=== PATIENT | female | born 1930 | race Two or more races ===

== ENCOUNTER 2018-03-14 21:43 | Inpatient (IN) | payer SELFPAY ==
[~2018-03-14] VITALS: Ht 152.4 cm; Wt 63.3 kg
[2018-03-14 22:16] LABS: Basophils # (auto) 0.1 uL; Basophils % (auto) 0.6 % (0.0-2.0); Eosinophils # (auto) 0.1 uL; Eosinophils % (auto) 1.4 % (0.0-7.0); Hematocrit 43.1 % (36.0-46.0); Hemoglobin 15.2 g/dL (12.2-16.2); Lymphocytes # (auto) 1.3 uL; Lymphocytes % (auto) 14.9 % (10.0-50.0); Mean Corpuscular Hemoglobin 31.7 pg (28.0-32.0); Mean Corpuscular Hgb Conc. 35.2 g/dL (32.0-36.0); Mean Corpuscular Volume 89.9 fL (80.0-100.0); Monocytes % (auto) 11.4 % (0.0-12.0); Neutrophils # (auto) 6.4 uL; Neutrophils % (auto) 71.7 % (37.0-80.0); Platelet Count (auto) 148 10^3/uL (140-450); Red Blood Cells 4.79 10^6/uL (4.0-5.20); Red Cell Distribution Width 14.1 % (11.8-14.3); White Blood Cell 8.9 10^3/uL (4.4-10.8)
[2018-03-14 22:27] LABS: Alanine Aminotransferase 26 U/L (13-56); Albumin 3.4 g/dL (3.4-5.0); Anion Gap 6 (5-15); Aspartate Aminotransferase 18 U/L (15-37); Blood Urea Nitrogen 18 mg/dL (7-18); Calcium 9.3 mg/dL (8.5-10.1); Carbon Dioxide 27 mmol/L (21-32); Chloride 108 mmol/L (98-107); GFR African American 98 mL/min; GFR Non-African American 81 mL/min; Glucose 108 mg/dL (74-106); Sodium 141 mmol/L (136-145)
[2018-03-14 22:32] LABS: Alkaline Phosphatase 72 U/L (45-117); Bilirubin, Total 0.3 mg/dL (0.2-1.0); Total Protein 7.2 g/dL (6.4-8.2)
[2018-03-15] MEDS ORDERED: cloNIDine HCL 0.1 MG TAB PO ONE (00:15)
[2018-03-15] MEDS ORDERED: cloNIDine HCL 0.1 MG TAB ONE (00:15)
[2018-03-15] MEDS ORDERED: cefTRIAXone 1GM/10ml IVPUSH 10 ML IV ONE (00:45)
[2018-03-15 01:14] LABS: INR 0.95 (0.9-1.15); Partial Thromboplastin Time 27.1 sec (23.78-33.04); Prothrombin Time 10.2 sec (9.27-12.13)
[2018-03-15 04:07] LABS: Urine Bacteria FEW /hpf (None Seen); Urine Blood Negative /uL (Negative); Urine Mucus FEW (None Seen); Urine Specific Gravity 1.011 (1.001-1.035); Urine WBC 17 /hpf (0 - 5)
[2018-03-15] MEDS ORDERED: NITROGLYCERIN 0.4 MG SL TAB SL PRN (05:45)
[2018-03-15] MEDS ORDERED: HYDROcodone-ACET 5/325MG TAB PO PRN (05:45)
[2018-03-15] MEDS ORDERED: ALBUTEROL SULF 2.5 MG/0.5ML(0.5%) NEB SOLN NEB PRN (05:45)
[2018-03-15] MEDS ORDERED: TEMAZEPAM 15 MG CAP PO PRN (05:45)
[2018-03-15] MEDS ORDERED: MORPHINE SULFATE 4 MG/ML SYR/VIAL IV PRN (05:45)
[2018-03-15] MEDS ORDERED: ACETAMINOPHEN 325 MG TAB PO PRN (05:45)
[2018-03-15] MEDS ORDERED: DOCUSATE SOD 100 MG CAP PO PRN (05:45)
[2018-03-15] MEDS ORDERED: ONDANSETRON HCL 4 MG/2 ML VIAL IV PRN (05:45)
[2018-03-15] MEDS: AZITHROMYCIN 500MG/ 250ML 250 ML IV SCH (08:19)
[2018-03-15 09:42] VITALS: BP 152/97
[2018-03-15] MEDS: ENOXAPARIN SOD 40 MG/0.4 ML SYRINGE SC SCH (10:10)
[2018-03-15] MEDS: FAMOTIDINE 20 MG TAB PO SCH ×2 (10:10→22:00)
[2018-03-15] MEDS ORDERED: amLODIPine BESYLATE 5 MG TAB PO ONE (13:15)
[2018-03-15] MEDS ORDERED: DILT40TA PO (13:43)
[2018-03-15] MEDS ORDERED: GABA100C9 PO (13:43)
[2018-03-15 17:00] VITALS: BP 137/76
[2018-03-15 22:00] VITALS: BP 145/71
[2018-03-15] MEDS ORDERED: cefTRIAXone 1GM/10ml IVPUSH 10 ML IV SCH (23:00)
[2018-03-16 05:20] VITALS: BP 197/85
[2018-03-16] MEDS ORDERED: cloNIDine HCL 0.1 MG TAB PO PRN (06:00)
[2018-03-16] MEDS: AZITHROMYCIN 500MG/ 250ML 250 ML IV SCH (06:28)
[2018-03-16 07:48] VITALS: BP 123/76
[2018-03-16] MEDS ORDERED: LORazepam 2MG/ML-1ML VIAL IV PRN (09:45)
[2018-03-16] MEDS ORDERED: LORazepam 2MG/ML-1ML VIAL IV ONE (09:45)
[2018-03-16] MEDS ORDERED: amLODIPine BESYLATE 5 MG TAB PO SCH (10:00)
[2018-03-16] MEDS: ENOXAPARIN SOD 40 MG/0.4 ML SYRINGE SC SCH (10:00)
[2018-03-16] MEDS: FAMOTIDINE 20 MG TAB PO SCH (10:00)
[2018-03-16 11:31] VITALS: BP 123/76
== END 2018-03-16 11:53 | disposition home or self-care (01) | DRG 689 ==
LOC: ER 21:43 → TELE 21:44 → TELE-CENTR 03-15 14:44
PROVIDERS: ADMIT Nurse Practitioner; ATTEND Internal Medicine
DX: N39.0 Urinary tract infection, site not specified (principal); J18.1 Lobar pneumonia, unspecified organism; I10 Essential (primary) hypertension; R07.9 Chest pain, unspecified; Z90.49 Acquired absence of other specified parts of digestive tract
CPT/HCPCS: 36415; 71045; 80053; 81001; 83880; 84484; 85025; 85379; 85610; 85730; 87040; 96372; 96374; 96375; J0696

== ENCOUNTER 2018-03-17 13:37 | Inpatient (IN) | payer SELFPAY ==
[~2018-03-17] VITALS: Ht 177.8 cm; Wt 61.5 kg
[~2018-03-17 13:37] MED LIST: DILT40TA PO; GABA100C9 PO
[2018-03-17] MEDS ORDERED: SODIUM CHLORIDE 0.9% 1,000 ML IV ONE (15:53)
[2018-03-17 16:18] LABS: Basophils # (auto) 0.1 uL; Basophils % (auto) 0.7 % (0.0-2.0); Eosinophils # (auto) 0.1 uL; Eosinophils % (auto) 0.8 % (0.0-7.0); Hematocrit 44.3 % (36.0-46.0); Hemoglobin 15.8 g/dL (12.2-16.2); Lymphocytes # (auto) 1.2 uL; Lymphocytes % (auto) 11.4 % (10.0-50.0); Mean Corpuscular Hemoglobin 31.9 pg (28.0-32.0); Mean Corpuscular Hgb Conc. 35.7 g/dL (32.0-36.0); Mean Corpuscular Volume 89.4 fL (80.0-100.0); Monocytes # (auto) 0.9 uL; Monocytes % (auto) 8.3 % (0.0-12.0); Neutrophils # (auto) 8.3 uL; Neutrophils % (auto) 78.8 % (37.0-80.0); Nucleated Red Blood Cells % 0.2 %; Platelet Count (auto) 141 10^3/uL (140-450); Red Blood Cells 4.95 10^6/uL (4.0-5.20); Red Cell Distribution Width 14.5 % (11.8-14.3); White Blood Cell 10.6 10^3/uL (4.4-10.8)
[2018-03-17 17:05] LABS: Albumin 3.4 g/dL (3.4-5.0); Calcium 9.1 mg/dL (8.5-10.1); Potassium 3.4 mmol/L (3.5-5.1)
[2018-03-17 17:08] LABS: Bilirubin, Total 0.6 mg/dL (0.2-1.0); Total Protein 7.3 g/dL (6.4-8.2)
[2018-03-17] MEDS ORDERED: ONDANSETRON HCL 4 MG/2 ML VIAL IV PRN (22:30)
[2018-03-17] MEDS ORDERED: ACETAMINOPHEN 500 MG TAB PO PRN (22:30)
[2018-03-17] MEDS ORDERED: POTASSIUM CHL 20 Meq TABLET PO ONE (23:00)
[2018-03-17 23:22] VITALS: BP 169/85
[2018-03-17 23:40] VITALS: BP 153/74
[2018-03-18] MEDS: IPRATROPIUM BROM 0.5 MG/2.5ML INH SOL NEB SCH ×4 (01:08→18:22)
[2018-03-18] MEDS: ALBUTEROL SULF 2.5 MG/0.5ML(0.5%) NEB SOLN NEB SCH ×4 (01:08→18:22)
[2018-03-18 01:56] VITALS: BP 153/74
[2018-03-18 05:00] VITALS: BP 160/83
[2018-03-18 05:42] LABS: Basophils # (auto) 0.1 uL; Basophils % (auto) 0.9 % (0.0-2.0); Eosinophils # (auto) 0.1 uL; Eosinophils % (auto) 0.8 % (0.0-7.0); Hematocrit 41.8 % (36.0-46.0); Hemoglobin 14.9 g/dL (12.2-16.2); Lymphocytes # (auto) 1.3 uL; Lymphocytes % (auto) 16.2 % (10.0-50.0); Mean Corpuscular Hemoglobin 31.9 pg (28.0-32.0); Mean Corpuscular Hgb Conc. 35.6 g/dL (32.0-36.0); Mean Corpuscular Volume 89.6 fL (80.0-100.0); Monocytes # (auto) 0.8 uL; Monocytes % (auto) 10.7 % (0.0-12.0); Neutrophils # (auto) 5.5 uL; Neutrophils % (auto) 71.4 % (37.0-80.0); Nucleated Red Blood Cells % 0.1 %; Platelet Count (auto) 135 10^3/uL (140-450); Red Blood Cells 4.66 10^6/uL (4.0-5.20); Red Cell Distribution Width 14.1 % (11.8-14.3); White Blood Cell 7.8 10^3/uL (4.4-10.8)
[2018-03-18 06:05] LABS: Potassium 4.2 mmol/L (3.5-5.1)
[2018-03-18 06:10] LABS: BUN/Creatinine Ratio 31.1; Calcium 8.9 mg/dL (8.5-10.1)
[2018-03-18 08:56] VITALS: BP 187/81
[2018-03-18 11:45] VITALS: BP 165/76
[2018-03-18] MEDS: LEVOFLOXACIN 500MG 100 ML IV SCH (13:22)
[2018-03-18] MEDS: DILTIAZEM HCL 60 MG TAB PO SCH (13:22)
[2018-03-18] MEDS ORDERED: FUROSEMIDE 20 MG/2 ML VIAL IV ONE (15:15)
[2018-03-18] MEDS ORDERED: LORazepam 2MG/ML-1ML VIAL IV ONE (15:15)
[2018-03-18] MEDS ORDERED: LISINOPRIL 10 MG TAB PO ONE (16:00)
[2018-03-18] MEDS: SODIUM CHLORIDE 0.9% 1,000 ML IV SCH (16:30)
[2018-03-18] MEDS ORDERED: IOHEXOL 350 MG/ML 100ML IJ ONE (16:53)
[2018-03-18 17:08] VITALS: BP 143/85
[2018-03-18] MEDS: LORazepam 0.5 MG TAB PO PRN (21:47)
[2018-03-18 22:00] VITALS: BP 126/70
[2018-03-19] MEDS: IPRATROPIUM BROM 0.5 MG/2.5ML INH SOL NEB SCH ×4 (00:24→19:36)
[2018-03-19] MEDS: ALBUTEROL SULF 2.5 MG/0.5ML(0.5%) NEB SOLN NEB SCH ×4 (00:24→19:36)
[2018-03-19 05:00] VITALS: BP 130/51
[2018-03-19 06:12] LABS: Basophils # (auto) 0.1 uL; Basophils % (auto) 0.6 % (0.0-2.0); Eosinophils # (auto) 0.1 uL; Eosinophils % (auto) 1.5 % (0.0-7.0); Hematocrit 41.5 % (36.0-46.0); Hemoglobin 14.6 g/dL (12.2-16.2); Lymphocytes # (auto) 1.3 uL; Lymphocytes % (auto) 15.7 % (10.0-50.0); Mean Corpuscular Hgb Conc. 35.2 g/dL (32.0-36.0); Mean Corpuscular Volume 90.9 fL (80.0-100.0); Monocytes % (auto) 11.8 % (0.0-12.0); Neutrophils # (auto) 5.8 uL; Neutrophils % (auto) 70.4 % (37.0-80.0); Nucleated Red Blood Cells % 0.1 %; Platelet Count (auto) 131 10^3/uL (140-450); Red Blood Cells 4.57 10^6/uL (4.0-5.20); Red Cell Distribution Width 14.3 % (11.8-14.3); White Blood Cell 8.2 10^3/uL (4.4-10.8)
[2018-03-19 06:31] LABS: Anion Gap 7 (5-15); Blood Urea Nitrogen 21 mg/dL (7-18); Carbon Dioxide 24 mmol/L (21-32); Chloride 111 mmol/L (98-107); Cholesterol 147 mg/dL (< 200); GFR African American 67 mL/min; GFR Non-African American 56 mL/min; Glucose 109 mg/dL (74-106); Magnesium 2.3 mg/dL (1.6-2.6); Potassium 4.1 mmol/L (3.5-5.1); Sodium 142 mmol/L (136-145)
[2018-03-19 06:36] LABS: HDL Cholesterol 44 mg/dL (40-59); LDL Cholesterol 92 mg/dL (< 100); Triglycerides 89 mg/dL (< 150)
[2018-03-19] MEDS: SODIUM CHLORIDE 0.9% 1,000 ML IV SCH (09:10)
[2018-03-19 09:59] VITALS: BP 141/65
[2018-03-19] MEDS: LEVOFLOXACIN 500MG 100 ML IV SCH (10:18)
[2018-03-19] MEDS: DILTIAZEM HCL 60 MG TAB PO SCH (10:21)
[2018-03-19] MEDS: LISINOPRIL 10 MG TAB PO SCH (10:24)
[2018-03-19 13:00] VITALS: BP 130/76
[2018-03-19 16:20] VITALS: BP 128/59
[2018-03-19 21:53] VITALS: BP 122/60
[2018-03-20] MEDS: ALBUTEROL SULF 2.5 MG/0.5ML(0.5%) NEB SOLN NEB SCH ×4 (00:29→18:07)
[2018-03-20] MEDS: IPRATROPIUM BROM 0.5 MG/2.5ML INH SOL NEB SCH ×4 (00:29→18:07)
[2018-03-20 04:51] VITALS: BP 140/68
[2018-03-20] MEDS: LORazepam 0.5 MG TAB PO PRN (05:16)
[2018-03-20 05:28] LABS: Urine Bacteria NONE SEEN /hpf (None Seen); Urine Blood Negative /uL (Negative); Urine Mucus FEW (None Seen); Urine Specific Gravity 1.025 (1.001-1.035); Urine WBC 3 /hpf (0 - 5)
[2018-03-20 09:00] VITALS: BP 138/79
[2018-03-20] MEDS: LISINOPRIL 10 MG TAB PO SCH (09:34)
[2018-03-20] MEDS: DILTIAZEM HCL 60 MG TAB PO SCH (09:35)
[2018-03-20] MEDS ORDERED: LEVOFLOXACIN 500 MG TAB PO SCH (10:00)
[2018-03-20 13:00] VITALS: BP 146/74
[2018-03-20 14:06] VITALS: BP 146/74
[2018-03-20 17:03] VITALS: BP 146/79
== END 2018-03-20 19:47 | disposition home or self-care (01) | DRG 204 ==
LOC: ER 13:44 → WEST WING 13:45
PROVIDERS: ADMIT Nurse Practitioner Family; ATTEND Internal Medicine
DX: R06.02 Shortness of breath (principal); F41.0 Panic disorder [episodic paroxysmal anxiety]; E87.6 Hypokalemia; I11.9 Hypertensive heart disease without heart failure; J98.4 Other disorders of lung; Z87.01 Personal history of pneumonia (recurrent); Z90.49 Acquired absence of other specified parts of digestive tract
CPT/HCPCS: 36415; 36600; 71046; 71275; 80048; 80053; 80061; 81001; 82805; 83735; 83880; 84443; 84484; 85025; 85379; 87081; 87086; 93005; 93306; 94640; 94761; 96361; 96365; 96375; 97163; G0378; J1956

== ENCOUNTER 2018-03-25 05:47 | Emergency (ER) | payer SELFPAY ==
[~2018-03-25] VITALS: Ht 142.2 cm; Wt 63.5 kg
[2018-03-25] MEDS ORDERED: IPRATROPIUM BROM 0.5 MG/2.5ML INH SOL NEB ONE (07:00)
[2018-03-25] MEDS ORDERED: ALBUTEROL SULF 2.5 MG/0.5ML(0.5%) NEB SOLN NEB ONE (07:00)
[2018-03-25 07:29] LABS: Albumin 3.5 g/dL (3.4-5.0); Anion Gap 7 (5-15); Blood Urea Nitrogen 13 mg/dL (7-18); Calcium 9.9 mg/dL (8.5-10.1); Carbon Dioxide 25 mmol/L (21-32); Chloride 109 mmol/L (98-107); Glucose 107 mg/dL (74-106); Magnesium 2.4 mg/dL (1.6-2.6); Potassium 3.1 mmol/L (3.5-5.1); Sodium 141 mmol/L (136-145)
[2018-03-25 07:35] LABS: Alanine Aminotransferase 26 U/L (13-56); Alkaline Phosphatase 74 U/L (45-117); Aspartate Aminotransferase 16 U/L (15-37); Bilirubin, Total 0.7 mg/dL (0.2-1.0); GFR African American 117 mL/min; GFR Non-African American 97 mL/min; Total Protein 7.3 g/dL (6.4-8.2)
[2018-03-25 07:43] LABS: Basophils # (auto) 0.1 uL; Basophils % (auto) 0.9 % (0.0-2.0); Eosinophils # (auto) 0.1 uL; Eosinophils % (auto) 1.1 % (0.0-7.0); Hemoglobin 15.1 g/dL (12.2-16.2); Lymphocytes # (auto) 1.2 uL; Lymphocytes % (auto) 16.5 % (10.0-50.0); Mean Corpuscular Hemoglobin 31.1 pg (28.0-32.0); Mean Corpuscular Hgb Conc. 35.2 g/dL (32.0-36.0); Mean Corpuscular Volume 88.3 fL (80.0-100.0); Monocytes # (auto) 0.8 uL; Monocytes % (auto) 10.5 % (0.0-12.0); Neutrophils # (auto) 5.3 uL; Nucleated Red Blood Cells % 0.2 %; Platelet Count (auto) 146 10^3/uL (140-450); Red Blood Cells 4.87 10^6/uL (4.0-5.20); White Blood Cell 7.4 10^3/uL (4.4-10.8)
[2018-03-25] MEDS ORDERED: POTASSIUM EFFERVESENT TAB 25 MEQ PO ONE (08:00)
[2018-03-25 09:04] LABS: Urine Bacteria FEW /hpf (None Seen); Urine Blood Negative /uL (Negative); Urine Mucus FEW (None Seen); Urine Specific Gravity 1.009 (1.001-1.035); Urine WBC 1 /hpf (0 - 5)
[2018-03-25] MEDS ORDERED: LORazepam 0.5 MG TAB PO ONE (10:15)
[2018-03-25 10:27] VITALS: BP 160/88
== END 2018-03-25 10:26 | disposition home or self-care (01) ==
LOC: ER 05:47
DX: J40 Bronchitis, not specified as acute or chronic (principal); E87.6 Hypokalemia; I10 Essential (primary) hypertension; Z90.49 Acquired absence of other specified parts of digestive tract
CPT/HCPCS: 36415; 71045; 80053; 81001; 83735; 83880; 84484; 85025; 93005; 94640; 99285; J7611; J7644